=== PATIENT | male | born 1970 | race Caucasian/White ===

== ENCOUNTER 2023-05-02 06:56 | Day surgery (SDC) | payer BC ==
[2023-05-02] MEDS ORDERED: Glycopyrrolate 0.2 MG/ML 5 ML MDV IV ONE (06:57)
[2023-05-02] MEDS ORDERED: Lidocaine 2% 5 ML SDV IV ONE (06:57)
[2023-05-02] MEDS ORDERED: Propofol 200 MG/20 ML SDV IV ONE (06:57)
[2023-05-02] MEDS ORDERED: Lactated Ringers 1,000 ML IV SCH (07:00)
[2023-05-02] MEDS ORDERED: Sodium Chloride 0.9% 10 ML Syringe FLUSH PRN (07:00)
[2023-05-02] MEDS ORDERED: Simethicone Drops 40 MG/0.6 ML 30 ML Bottle PO ONE (08:46)
== END 2023-05-02 10:56 | disposition home or self-care (01) ==
LOC: FB.SDS 06:56
PROVIDERS: ATTEND Surgery
DX: K63.5 Polyp of colon (principal); K64.1 Second degree hemorrhoids; K59.09 Other constipation; K60.1 Chronic anal fissure
CPT/HCPCS: 00811; 45384; 46221; 88305; A9270; J2704; J3490; J7120